=== PATIENT | male | born 1975 | race Hispanic/Latino ===

== ENCOUNTER 2016-06-24 21:08 | Emergency (ER) | payer MEDICAID, OTHER ==
[2016-06-24 21:28] VITALS: BMI 25.6
[2016-06-24 21:32] VITALS: RESP 18; TEMP 97.7; O2SAT 99
[2016-06-24] MEDS ORDERED: TDAP Vaccine 0.5 mL Syr IM ONE (22:51)
--- NOTE | 2016-06-25 00:01 | ED PDOC ---
Arrival/HPI - General Chief Complaint: Finger,Hand,&Wrist Time Seen by Provider: 06/24/16 22:51 Historian: Patient - History of Present Illness Narrative History of Present Illness (Text): 06/24/16 23:57 41-year-old male presents today with a laceration to the left third finger. 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 Patient states he cleaned the wound and then applied a black powder in his first aide kit that is meant to stop bleeding immediately. Patient presents today complaining of numbness to the ulnar aspect of the left third finger. He denies decreased range of motion of the finger. Denies fevers or chills. Unsure of his last tetanus shot. No other complaints Time/Duration: Other (last night (>12 hrs)) Symptom Onset: Sudden Symptom Course: Unchanged Quality: Aching Severity Level: 2 Past Medical History - Provider Review Nursing Documentation Reviewed: Yes - Travel History Have you recently traveled outside [place] w/in the past 3 mons?: No - Past History Past History: No Previous - Infectious Disease Hx of Infectious Diseases: None - Tetanus Immunization Tetanus Immunization: Up to Date (4 yrs ago) - Psychiatric Hx Psychophysiologic Disorder: No Hx Anxiety: No Hx Bipolar Disorder: No Hx Depression: No Hx Emotional Abuse: No Hx Hallucinations: No Hx Panic Disorder: No Hx Post Traumatic Stress Disorder: No Hx Psychosis: No Hx Physical Abuse: No Hx Schizophrenia: No Hx Sexual Abuse: No Hx Substance Use: No - Anesthesia Hx Anesthesia: Yes Hx Anesthesia Reactions: No Hx Malignant Hyperthermia: No Family/Social History - Physician Review Nursing Documentation Reviewed: Yes Family/Social History: Unknown Family HX Smoking Status: Heavy Smoker > 10 Cigarettes Daily Hx Alcohol Use: Yes Hx Substance Use: No Allergies/Home Meds Allergies/Adverse Reactions: Allergies No Known Allergies Allergy (Verified 05/12/15 16:12) Review of Systems - Review of Systems Constitutional: absent: Fatigue, Fevers Respiratory: absent: SOB, Cough Cardiovascular: absent: Chest Pain, Palpitations Gastrointestinal: absent: Abdominal Pain, Nausea, Vomiting Musculoskeletal: Arthralgias. absent: Back Pain, Neck Pain Skin: Laceration Neurological: absent: Headache, Dizziness Physical Exam Vital Signs Reviewed: Yes Vital Signs Temp Pulse Resp BP Pulse Ox 06/25/16 01:26 78 18 127/71 99 06/24/16 21:27 97.7 F 88 18 118/62 99 Temperature: Afebrile Blood Pressure: Normal Pulse: Regular Respiratory Rate: Normal Appearance: Positive for: Well-Appearing, Non-Toxic, Comfortable Pain Distress: None Mental Status: Positive for: Alert and Oriented X 3 - Systems Exam Head: Present: Atraumatic Mouth: Present: Moist Mucous Membranes Neck: Present: Normal Range of Motion Respiratory/Chest: Present: Clear to Auscultation Cardiovascular: Present: Regular Rate and Rhythm Upper Extremity: Present: Normal ROM, NORMAL PULSES, Tenderness (Left third finger: There is a 1cm linear laceration noted over the ulnar aspect of the middle phalanx just proximal to the PIP joint with a black powder overlying the laceration. full rom of finger, pulses intact. there is decreased sensation noted to the distal tip of the finger along the ulnar side. no erythema; no edema, no ecchymosis. ), Capillary Refill < 2s. No: Swelling, Erythema Neurological: Present: GCS=15, Speech Normal Skin: Present: Warm, Dry Psychiatric: Present: Alert, Oriented x 3 Medical Decision Making ED Course and Treatment: 06/25/16 00:01 Patient is nontoxic well appearing in no distress. Vital signs are stable. Wound irrigated well with high pressure irrigation, all black first aid bleeding control powder removed. Tetanus updated Motrin Keflex by mouth X-ray of the left third finger: No fracture Wound is greater than 12 hours old will allow to heal by secondary intention. Bacitracin and dressing applied finger splint applied. Patient was advised to keep the wound clean and dry, apply bacitracin twice daily. I advised to follow-up with the orthopedist/hand specialist within the next 2 days. advised to return immediately if signs of infection develop or return if any other concerning symptoms develop. Patient verbalizes understanding of discharge instructions and need for immediate followup. Impression: Laceration, finger Motrin every 6 hours as needed for pain Keflex 4 times daily 7 days Keep the wound clean and dry, apply bacitracin twice daily Return immediately if signs of infection develop: High fevers, increasing pain, redness, swelling, purulent discharge Follow up with the orthopedist/hand specialist within the next 2 days. Followup with primary care physician within the next 2 days Return if any other concerning symptoms develop - RAD Interpretation Radiology Orders: 05/18/17 22:51 HAND LEFT 3RD DIGIT (FINGER) [RAD] Stat - Medication Orders Current Medication Orders: Discontinued Medications Cephalexin Monohydrate (Keflex) 500 mg PO STAT STA PRN Reason: Protocol Stop: 06/24/16 22:52 Last Admin: 06/24/16 23:19 Dose: 500 mg Ibuprofen (Motrin Tab) 600 mg PO STAT STA Stop: 06/24/16 22:52 Last Admin: 06/24/16 23:19 Dose: 600 mg Tetanus/Reduced Diphtheria/Acell Pertussis (Boostrix Vaccine Inj) 0.5 ml IM .ONCE ONE Stop: 06/24/16 22:52 Last Admin: 06/24/16 23:19 Dose: 0.5 ml Disposition/Present on Arrival - Present on Arrival Any Indicators Present on Arrival: No History of DVT/PE: No History of Uncontrolled Diabetes: No Urinary Catheter: No History of Decub. Ulcer: No History Surgical Site Infection Following: None - Disposition Have Diagnosis and Disposition been Completed?: Yes Diagnosis: Laceration of finger Disposition: HOME/ ROUTINE Disposition Time: 00:03 Patient Plan: Discharge Patient Problems: Current Active Problems Problem Status Onset Laceration of finger Acute Condition: GOOD Discharge Instructions (ExitCare): Laceration Without Closure (ED) Additional Instructions: Motrin every 6 hours as needed for pain Keflex 4 times daily 7 days Keep the wound clean and dry, apply bacitracin twice daily Return immediately if signs of infection develop: High fevers, increasing pain, redness, swelling, purulent discharge Follow up with the orthopedist/hand specialist within the next 2 days. Followup with primary care physician within the next 2 days Return if any other concerning symptoms develop Prescriptions: Cephalexin [Keflex] 500 mg PO QID #28 capsule Ibuprofen [Motrin] 600 mg PO Q6H PRN #20 tab PRN Reason: pain/fever reduction Referrals: Talita Odom MD [Staff Provider] - [place] up with primary [facility] [place] - Follow up with primary [facility] [Outside] - Follow up with primary Isael Yan MD [Staff Provider] - Follow up with primary Forms: WORK NOTE
[2016-06-25 01:26] VITALS: BP 127/71; PULSE 78
--- NOTE | 2016-06-25 09:22 | RAD ---
PROCEDURE: Left Hand Radiographs. HISTORY: laceration, middle phalanx COMPARISON: None. FINDINGS: BONES: Normal. No fracture. JOINTS: Normal. No osteoarthritic changes. SOFT TISSUES: Normal. OTHER FINDINGS: None. IMPRESSION: Normal left hand radiographs.
== END 2016-06-25 01:35 | disposition home or self-care (01) ==
LOC: ED 21:08
DX: S61.213A Laceration without foreign body of left middle finger without damage to nail, initial encounter (principal); W27.8XXA Contact with other nonpowered hand tool, initial encounter; Y92.9 Unspecified place or not applicable; Z23 Encounter for immunization

== ENCOUNTER 2017-08-20 13:17 | Emergency (ER) | payer OTHER ==
[2017-08-20 13:18] VITALS: BMI 25.6
[2017-08-20 13:39] VITALS: TEMP 98.3
[2017-08-20] MEDS ORDERED: Tetracaine 0.5% Ophth 2 ML BOTTLE OD STA (14:29)
--- NOTE | 2017-08-20 15:49 | ED PDOC ---
Arrival/HPI - General Chief Complaint: Eye Problem Time Seen by Provider: 08/20/17 14:28 Historian: Patient - History of Present Illness Narrative History of Present Illness (Text): 08/20/17 15:56 42-year-old male presents today with a foreign body sensation in the right eye. Patient states yesterday he was cutting wood and metal and thinks possibly something may been floating in the air and went into his eye. Patient states he was not cutting the wood or metal at the time that the symptoms started. Patient states he felt as if something went into his eye and then he rubbed his eye and shortly after rubbing his eye started to develop pain. Patient states he was wearing his contacts at that time. Patient states he removed his contact with the pain did not improve. Patient denies blurred vision. Denies headaches. Denies trauma or injury. Patient states his tetanus shot was last year. Patient states he slept without his contacts in last night in hopes that he would feel better today. When he woke up the pain and foreign body sensation was still in the eye so he came to the emergency room for evaluation. Time/Duration: Other (yesterday) Symptom Onset: Sudden Symptom Course: Unchanged Past Medical History - Provider Review Nursing Documentation Reviewed: Yes - Travel History Have you recently traveled outside [place] w/in the past 3 mons?: No - Past History Past History: No Previous - Infectious Disease Hx of Infectious Diseases: None - Tetanus Immunization Tetanus Immunization: Up to Date (4 yrs ago) - Cardiac Hx Cardiac Disorders: No - Pulmonary Hx Respiratory Disorders: No - Endocrine/Metabolic Hx Endocrine Disorders: No - Gastrointestinal Hx Gastrointestinal Disorders: No - Psychiatric Hx Psychophysiologic Disorder: No Hx Anxiety: No Hx Bipolar Disorder: No Hx Depression: No Hx Emotional Abuse: No Hx Hallucinations: No Hx Panic Disorder: No Hx Post Traumatic Stress Disorder: No Hx Psychosis: No Hx Physical Abuse: No Hx Schizophrenia: No Hx Sexual Abuse: No Hx Substance Use: No - Anesthesia Hx Anesthesia: Yes Hx Anesthesia Reactions: No Hx Malignant Hyperthermia: No Family/Social History - Physician Review Nursing Documentation Reviewed: Yes Family/Social History: Unknown Family HX Smoking Status: Heavy Smoker > 10 Cigarettes Daily Hx Alcohol Use: Yes Hx Substance Use: No Allergies/Home Meds Allergies/Adverse Reactions: Allergies No Known Allergies Allergy (Verified 05/12/15 16:12) Review of Systems - Review of Systems Constitutional: absent: Fatigue, Fevers Eyes: Photophobia, Other (fb sensation in right eye). absent: Vision Changes Respiratory: absent: SOB, Cough Cardiovascular: absent: Chest Pain, Palpitations Gastrointestinal: absent: Abdominal Pain, Nausea, Vomiting Genitourinary Male: absent: Dysuria Musculoskeletal: absent: Arthralgias Skin: absent: Rash, Pruritis Neurological: absent: Headache, Dizziness Psychiatric: absent: Anxiety, Depression Physical Exam Vital Signs Reviewed: Yes Vital Signs Temp Pulse Resp BP Pulse Ox 08/20/17 13:38 98.3 F 80 20 113/72 97 Temperature: Afebrile Blood Pressure: Normal Pulse: Regular Respiratory Rate: Normal Appearance: Positive for: Well-Appearing, Non-Toxic, Comfortable Pain Distress: None Mental Status: Positive for: Alert and Oriented X 3 - Systems Exam Head: Present: Atraumatic Pupils: Present: PERRL Extroacular Muscles: Present: EOMI Conjunctiva: Present: Injected (right eye conjunctival injection; no dye uptake , no corneal abrasion or ulceration, no hyphema, no subconjunctival hemorrhage, no periorbital edema or erythema. ) Mouth: Present: Moist Mucous Membranes Neck: Present: Normal Range of Motion Respiratory/Chest: Present: Clear to Auscultation Cardiovascular: Present: Regular Rate and Rhythm Neurological: Present: GCS=15, Speech Normal Skin: Present: Warm, Dry, Normal Color. No: Rashes Psychiatric: Present: Alert, Oriented x 3 Medical Decision Making ED Course and Treatment: 08/20/17 15:50 Patient is nontoxic well appearing in no distress. pt with FB sensation in right eye since yesterday. Visual acuity: 20/30 both eyes; pt states he is wearing old glasses, not his currently prescription Patient's tetanus is up-to-date Right Conjunctival injection noted, PERRLA, extraocular muscles intact. No foreign body noted. No corneal abrasion noted, no diarrhea take Right eye was flushed with normal saline. Patient was advised follow-up with the eye doctor within the next 2 days. Patient was advised immediate return if symptoms worsen persist or if new concerning symptoms develop pt reassessment; pt feeling better. Patient verbalizes understanding of discharge instructions and need for immediate followup. all aspects of this case were discussed the attending of record. Impression: Conjunctivitis, foreign body sensation in eye Cipro eyedrops: apply 2 drops in the affected eye every 2 hours while awake for the first 2 days and then 2 drops every 4 hours 5 days Followup with the eye doctor within the next 2 days Return immediately if symptoms worsen persist or if new symptoms develop; blurry vision, worsening eye pain, worsening redness or any other concerning symptoms develop. Follow up with the primary care physician within the next 2 days Reassessment Condition: Re-examined, Improved Disposition/Present on Arrival - Present on Arrival Any Indicators Present on Arrival: No History of DVT/PE: No History of Uncontrolled Diabetes: No Urinary Catheter: No History of Decub. Ulcer: No History Surgical Site Infection Following: None - Disposition Have Diagnosis and Disposition been Completed?: Yes Diagnosis: Acute conjunctivitis, Sensation of foreign body in eye Disposition: HOME/ ROUTINE Disposition Time: 15:46 Patient Plan: Discharge Patient Problems: Current Active Problems Problem Status Onset Acute conjunctivitis Acute Sensation of foreign body in eye Acute Condition: GOOD Discharge Instructions (ExitCare): Conjunctivitis ([place]) (DC) Additional Instructions: Cipro eyedrops: apply 2 drops in the affected eye every 2 hours while awake for the first 2 days and then 2 drops every 4 hours 5 days Followup with the eye doctor within the next 2 days Return immediately if symptoms worsen persist or if new symptoms develop; blurry vision, worsening eye pain, worsening redness or any other concerning symptoms develop. Follow up with the primary care physician within the next 2 days Prescriptions: Ciprofloxacin 0.3% [Ciloxan 0.3% Ophth SOLN] 2 drop OD Q4H #1 bottle Referrals: Trey Maddox MD [Staff Provider] - Follow up with primary Silvia Henderson MD [Staff Provider] - Follow up with primary [facility] [Outside] - Follow up with primary Forms: [facility] (Syrian), WORK NOTE
[2017-08-20 16:33] VITALS: BP 120/76; PULSE 74; RESP 18; O2SAT 99
== END 2017-08-20 16:48 | disposition home or self-care (01) ==
LOC: ED 13:17
DX: H10.31 Unspecified acute conjunctivitis, right eye (principal); T15.91XA Foreign body on external eye, part unspecified, right eye, initial encounter; X58.XXXA Exposure to other specified factors, initial encounter; Y92.9 Unspecified place or not applicable